=== PATIENT | female | born 1940 | race African-American/Black ===

== ENCOUNTER 2019-05-29 11:05 | Inpatient (IN) | payer OTHER ==
[~2019-05-29] VITALS: Ht 160 cm; Wt 85.7 kg
[2019-05-29 11:08] VITALS: BP 150/71
[2019-05-29] MEDS ORDERED: XALOS OP (11:21)
[2019-05-29] MEDS ORDERED: LACT-2 (11:21)
[2019-05-29] MEDS ORDERED: QUET25TA PO (11:21)
[2019-05-29] MEDS ORDERED: CRAN450C PO (11:21)
[2019-05-29] MEDS ORDERED: LISI10TA11 PO (11:21)
[2019-05-29] MEDS ORDERED: DOCU250S72 PO (11:21)
[2019-05-29] MEDS ORDERED: HYDR10TA1 PO (11:21)
[2019-05-29] MEDS ORDERED: SIMV20TA1 PO (11:21)
[2019-05-29] MEDS ORDERED: ASCO500T45 PO (11:21)
[2019-05-29] MEDS ORDERED: OMEP20TC10 PO (11:21)
[2019-05-29] MEDS ORDERED: VITD1000 PO (11:21)
[2019-05-29] MEDS ORDERED: SYN.05 PO (11:21)
[2019-05-29] MEDS ORDERED: MAGN400S60 PO (11:21)
[2019-05-29] MEDS ORDERED: TIM.5OS OP (11:21)
[2019-05-29] MEDS ORDERED: MELA5TAB6 PO (11:21)
--- NOTE | 2019-05-29 12:01 | NUR ---
PT ARRIVED BY AMBULANCE FROM [place] C/O STAFF FOUND HER ON THE FLOOR, AGIGATED, WITH INCREASE HALLUCINATION. UPON ARRIVAL PT IS COOPERATIVE. PT IS RESPONSIVE TO EXTERNAL STIMULI. MVOING ALL EXTREM. FULL CLEAR SPEECH, NO USE OF ACCESSORY MUSCLE NOTED. NO SI/HI PMH: DEMENTIA, ALZ, HALLUCINATION, GLUACOMA (RIGHT EYE BLIND) NKA
[2019-05-29] MEDS ORDERED: LORazepam 2 MG/ML VIAL IM ONE (12:10)
[2019-05-29] MEDS ORDERED: OLANZapine 5 MG ODT PO ONE (12:10)
--- NOTE | 2019-05-29 12:24 | NUR ---
MEDICATED DOCUMENTED---IN THE PYXIS MISTAKENLY I DOCUMENTED WITH GAVINO RN WASTED 1.5MG WHEN ACTUALLY WE WILL GIVE 1MG TOTAL---PHARMACY WAS CALLED AND INFORMED . THEY SUGGESTED TO DOCUMENT
--- NOTE | 2019-05-29 12:32 | NUR ---
ATIVAN IM GIVEN WITH MULTIPLE STAFF HOLDING DOWN PT D/T PT WAS BEING VERY AGITATED, AND SHOUTING. PT DENIED ZYPREXA PO. NOTIFIED
[2019-05-29] MEDS ORDERED: ZIPRASIDONE MESYLATE 20 MG/ML VIAL IM ONE (12:45)
[2019-05-29] MEDS ORDERED: WATER STERILE 10 ML MC ONE (12:56)
--- NOTE | 2019-05-29 13:45 | NUR ---
LAB AT BEDSIDE.
[2019-05-29 13:54] LABS: BASOPHILS # (AUTO) 0.1 K/uL (0.00-0.22); BASOPHILS % (AUTO) 1.3 % (0.0-2.0); EOSINOPHILS # (AUTO) 0.1 K/uL (0-0.4); EOSINOPHILS % (AUTO) 0.9 % (0.0-4.0); HEMATOCRIT 34.4 % (36-48); LYMPHOCYTES # (AUTO) 1.3 K/uL (2.5-16.5); MEAN CORPUSCULAR HEMOGLOBIN 29 pg (27-31); MEAN CORPUSCULAR HGB CONC 32 g/dL (33-37); MEAN CORPUSCULAR VOLUME 89.4 fL (80-94); MONOCYTES # (AUTO) 0.2 K/uL (0.8-1.0); MONOCYTES % (AUTO) 3.9 % (1.7-9.3); NEUTROPHILS # (AUTO) 4.3 K/uL (1.8-7.7); NEUTROPHILS % (AUTO) 71.9 % (42.2-75.2); PLATELET COUNT (AUTO) 231 K/uL (140-450); RED BLOOD CELL COUNT(AUTO) 3.85 MIL/uL (4.20-5.40); RED CELL DISTRIBUTION WIDTH 15.2 % (11.6-13.7)
--- NOTE | 2019-05-29 13:56 | NUR ---
NOTIFIED AND IS AWARE OF CXR RESULTS.
[2019-05-29 14:26] LABS: ANION GAP 12.4 (8-16); CARBON DIOXIDE 27.4 mmol/L (21-32); CHLORIDE 106 mmol/L (98-107); CREATININE 1.3 mg/dL (0.6-1.3); GLUCOSE 175 mg/dL (74-106); POTASSIUM 3.8 mmol/L (3.5-5.1); SODIUM SERUM 142 mmol/L (136-145); UREA NITROGEN, BLOOD 19 mg/dL (7-18)
[2019-05-29 14:32] LABS: ALBUMIN 3.4 g/dL (3.4-5.0); ASPARTATE AMINOTRANSFERASE 17 U/L (15-37); TOTAL BILIRUBIN 0.2 mg/dL (0.0-1.0)
[2019-05-29 14:36] LABS: SALICYLATE < 2.8 mg/dL (2.8-20.0)
[2019-05-29 14:38] LABS: ACETAMINOPHEN < 0.5 ug/ml (10-30)
[2019-05-29] MEDS ORDERED: NACL 0.9% 1,500 ML IV ONE (15:20)
[2019-05-29 15:23] LABS: BILIRUBIN,URINE NEGATIVE (NEGATIVE); BLOOD, URINE TRACE-L (NEGATIVE); COLOR,URINE YELLOW (YELLOW); LEUKOCYTE ESTERASE ,URINE 3+ (NEGATIVE); NITRITE, URINE NEGATIVE (NEGATIVE); UGLUCOSE NEGATIVE (NEGATIVE)
[2019-05-29 15:40] LABS: RBC,URINE 0-5 /HPF (0-5)
[2019-05-29 16:39] LABS: BARBITURATE, URINE NEG. ng/ml (NEG <=200); BENZODIAZEPINE, URINE NEG. ng/mL (NEG <=200); CANNABINOID, URINE NEG. ng/mL (NEG <=50); COCAINE, URINE NEG. ng/mL (NEG <=300); OPIATE, URINE NEG. ng/mL (NEG <=2000); PHENCYCLIDINE SCREEN,URINE NEG. ng/mL (NEG <=25)
[2019-05-29 17:41] LABS: ANION GAP 14.2 (8-16); CHLORIDE 108 mmol/L (98-107); CREATININE 1.2 mg/dL (0.6-1.3); GLUCOSE 122 mg/dL (74-106); POTASSIUM 4.2 mmol/L (3.5-5.1); SODIUM SERUM 145 mmol/L (136-145); UREA NITROGEN, BLOOD 18 mg/dL (7-18)
--- NOTE | 2019-05-29 18:17 | NUR ---
PT TO [facility] VIA [facility]
--- NOTE | 2019-05-29 18:47 | NUR ---
[facility]---PT REACTIVE TO ANY MILD STIMULI. NO C/O PAIN AT THIS TIME.--WILL CONTINUE TO OBSERVE FOR ANY CHANGES
--- NOTE | 2019-05-29 19:16 | NUR ---
REPORT GIVEN TO BRENDEN BRENNAN
[2019-05-29] MEDS ORDERED: HYDROcodone/APAP 7.5/325 MG 1 TAB PO PRN (20:00)
[2019-05-29] MEDS ORDERED: ACETAMINOPHEN 325 MG TAB PO PRN (20:00)
[2019-05-29] MEDS ORDERED: DOCUSATE SODIUM 100 MG GELCAP PO PRN (20:00)
[2019-05-29] MEDS ORDERED: ONDANSETRON 4 MG/2 ML VIAL IM/IVP PRN (20:00)
--- NOTE | 2019-05-29 20:30 | NUR ---
Patient will be admitted to care of . Admited to MED-SURG . Will go to room 110A. Belongings list completed. Report to BRENDEN REED .
--- NOTE | 2019-05-29 20:30 | NUR ---
PATIENT [facility]
--- NOTE | 2019-05-29 20:40 | NUR ---
RECEIVED REPORT FROM ER NURSE AT PATIENTS BEDSIDE, PATIENT SAFELY TRANSFERRED INTO BED. PATIENT NOT COOPERATIVE, VERY CONFUSED, NOT ALLOWING ANYONE TO TOUCH HER OR HELP HER MOVE. WILL FOLLOWUP CARE
[2019-05-29 20:41] LABS: FREE T4 (FREE THYROXINE) 0.35 ng/dL (0.76-1.46); MAGNESIUM 2.1 mg/dL (1.8-2.4); PHOSPHORUS 3.5 mg/dL (2.5-4.9); THYROID STIMULATING HORMONE 1.04 uIU/mL (0.34-3.74)
[2019-05-29 20:43] LABS: PROTHROMBIN TIME 9.8 secs (10.8-13.4)
--- NOTE | 2019-05-29 20:50 | NUR ---
PATIENT REFUSING ANY HELP FROM NURSES, DR AT BEDSIDE. PATIENT WILL PUSH AWAY OR SWAT AT NURSE TO CONNECT PULSE OX, NASAL CANNULA, OR TO REPLACE GOWN AND LINENS. ABLE TO GET BLOOD PRESSURE-153/107, HEART RATE 80, RR 18.
--- NOTE | 2019-05-29 21:00 | NUR ---
MADE AWARE OF PATIENTS CRITICAL LABS, LACTIC ACID 2.1. PENDING ORDERS
--- NOTE | 2019-05-29 21:10 | NUR ---
PATIENT SITTING UP IN BED, DOES NOT OPEN EYES TO VOICE, RIGHT EYE BLINDNESS/GLAUCOMA. ANOx1, PATIENT ALERT TO NAME, REQUESTS TO BE CALLED [facility]IL[facility]. PATIENT IS UNCOOPERATIVE, REFUSING CARE, DOES NOT WANT TO BE TOUCHED. CONFUSED. SLIGHTLY AGGRESSIVE. CANNOT TAKE VITALS AT THIS TIME DUE TO PATIENT SWATTING AT NURSES WHEN ATTEMPTING TO CONNECT EQUIPMENT. RIGHT AC PERIPHERAL IV 20G, SALINE LOCKED. BRIEF IN PLACE, PATIENT INCONTINENT. AT THIS TIME, PATIENT UNABLE TO ANSWER QUESTIONS ABOUT MEDICAL HISTORY DUE TO CONDITION. WILL FOLLOWUP CARE
[2019-05-29] MEDS ORDERED: cefTRIAXone 1,000 MG VIAL ONE (22:20)
--- NOTE | 2019-05-29 23:50 | NUR ---
PATIENT FINALLY ALLOWED NURSES TO REPLACE GOWN AND CHANGE LINENS. BED ALARMS IN PLACE, 1:[address]. PATIENT IS ANOx1, RESPONDS TO NAME, VERBAL BUT CONFUSED, TALKING OUT LOUD, DOES NOT FOLLOW COMMANDS.
[2019-05-30] VITALS: BP 150/87
--- NOTE | 2019-05-30 | NUR ---
PER ORDERS, PATIENT IS NPO BY MOUTH, AND STARTED ON D51/2NS IV FLUIDS. SITE ASYMPTOMATIC, FLUSHED AND PATENT. PATIENT IS AGITATED BUT RN ABLE TO MAINTAIN IV FLUIDS.
--- NOTE | 2019-05-30 00:40 | NUR ---
NASAL CANNULA IN PLACE AT 2L, SATURATIONS 96%. IV FLUIDS INFUSING, FIRST DOSE ROCEPHIN COMPLETE, NO SIGNS OF REACTION. WILL CONTINUE CLOSE MONITORING
[2019-05-30] MEDS: DEXT 5% / NACL 0.45% 1,000 ML IV SCH ×3 (00:57→23:35)
--- NOTE | 2019-05-30 02:34 | NUR ---
PATIENT QUIET, RESTING WELL IN BED, EYES CLOSED. BREATHING IS UNLABORED, CHEST RISE AND FALL. ON 2L NASAL CANNULA. FLACC 0, WILL CONTINUE TO MONITOR
[2019-05-30] MEDS ORDERED: ACETAMINOPHEN 325 MG TAB GT PRN (03:30)
[2019-05-30] MEDS ORDERED: HYDROcodone/APAP 7.5/325 MG 1 TAB GT PRN (03:30)
--- NOTE | 2019-05-30 04:28 | NUR ---
1:1 SITTER AT BEDSIDE, PATIENT AWAKE, TALKING TO HERSELF/HALLUCINATING. SITTER HAS TO FREQUENTLY ORIENT PATIENT AND REAPPLY NASAL CANNULA. BED IN LOW POSITION, SIDE RAILS UP, PATIENT DOES DENY PAIN. WILL CONTINUE TO MONITOR
[2019-05-30] MEDS: BLOOD GLUCOSE MONITORING 1 DEV DEV FS SCH ×5 (06:00→21:27)
[2019-05-30] MEDS ORDERED: LEVOTHYROXINE 0.05 MG TAB PO SCH (06:30)
[2019-05-30] MEDS: LEVOTHYROXINE 0.05 MG TAB GT SCH (06:30)
--- NOTE | 2019-05-30 06:43 | NUR ---
SEVERAL ATTEMPTS TO CALL ENVELOPE SEALER OPERATOR ON FACE SHEET- GARLAND ALATORRE [phone], SAYS LINE IS DISCONNECTED. WILL F/U WITH SNF
--- NOTE | 2019-05-30 07:00 | NUR ---
PATIENT REFUSED MEDICATION AND ACCUCHECK, BLOOD WAS DRAWN VIA LANCET BUT PATIENT IMMEDIATELY SWATTING AT NURSE AND YELLING TO LEAVE HER ALONE. PATIENT AGITATED AT THIS TIME, UNABLE TO ACCESS GTUBE SITE. PATIENT IS 1:1 SITTER.
--- NOTE | 2019-05-30 07:15 | NUR ---
RECEIVED REPORT FROM DIGITAL RESEARCH ANALYST NURSE FOR CONTINUITY OF CARE. PT IN STABLE CONDITION. IV INTACT AND PATENT. RESPIRATIONS EVEN AND UNLABORED. SAFETY MEASURES IN PLACE. BED IN LOW POSITION. BED ALARM ON. 1:[address] WILL CONTINUE TO MONITOR.
[2019-05-30 07:57] LABS: ANION GAP 14.8 (8-16); BASOPHILS % (AUTO) 0.8 % (0.0-2.0); CARBON DIOXIDE 27.6 mmol/L (21-32); CHLORIDE 107 mmol/L (98-107); CREATININE 1.1 mg/dL (0.6-1.3); EOSINOPHILS # (AUTO) 0.2 K/uL (0-0.4); EOSINOPHILS % (AUTO) 2.8 % (0.0-4.0); GLUCOSE 95 mg/dL (74-106); HEMOGLOBIN 11.5 g/dL (12.0-16.0); LYMPHOCYTES # (AUTO) 2.2 K/uL (2.5-16.5); MEAN CORPUSCULAR HEMOGLOBIN 29 pg (27-31); MEAN CORPUSCULAR HGB CONC 32 g/dL (33-37); MONOCYTES # (AUTO) 0.3 K/uL (0.8-1.0); MONOCYTES % (AUTO) 5.5 % (1.7-9.3); NEUTROPHILS # (AUTO) 3.3 K/uL (1.8-7.7); NEUTROPHILS % (AUTO) 53.9 % (42.2-75.2); PLATELET COUNT (AUTO) 262 K/uL (140-450); POTASSIUM 3.4 mmol/L (3.5-5.1); RED CELL DISTRIBUTION WIDTH 15.1 % (11.6-13.7); SODIUM SERUM 146 mmol/L (136-145); UREA NITROGEN, BLOOD 13 mg/dL (7-18); WHITE BLOOD COUNT (AUTO) 6.1 K/uL (4.8-10.8)
[2019-05-30 08:00] VITALS: BP 147/84
--- NOTE | 2019-05-30 08:22 | NUR ---
PATIENT HAS BEEN SCREENED AND CATEGORIZED MODERATE NUTRITION RISK. PATIENT WILL BE SEEN WITHIN 3-5 DAYS OF ADMISSION. 06/01/19 06/03/[address]
[2019-05-30 08:53] LABS: PHOSPHORUS 2.9 mg/dL (2.5-4.9)
[2019-05-30] MEDS ORDERED: QUEtiapine FUMARATE 25 MG TAB GT SCH ×2 (09:00→14:41)
[2019-05-30] MEDS: ASCORBIC ACID 500 MG TAB GT SCH (09:00)
[2019-05-30] MEDS ORDERED: LISINOPRIL 10 MG TAB PO SCH (09:00)
[2019-05-30] MEDS: LISINOPRIL 10 MG TAB GT SCH (09:00)
[2019-05-30] MEDS ORDERED: QUEtiapine FUMARATE 25 MG TAB PO SCH (09:00)
[2019-05-30] MEDS ORDERED: ASCORBIC ACID 500 MG TAB PO SCH (09:00)
[2019-05-30] MEDS: predniSONE 5 MG TAB GT SCH ×2 (09:00→21:24)
[2019-05-30] MEDS: LACTOBACILLUS RHAMNOSUS GG 1 EACH CAP GT SCH (09:00)
[2019-05-30] MEDS ORDERED: LACTOBACILLUS RHAMNOSUS GG 1 EACH CAP PO SCH (09:00)
[2019-05-30] MEDS ORDERED: predniSONE 5 MG TAB PO SCH ×2 (09:00→21:00)
--- NOTE | 2019-05-30 09:30 | NUR ---
PT REFUSED ORDERED DUE MEDICATION AT G-TUBE SITE AND ORAL. IV ORDERED MEDICATION GIVEN AT THIS TIME. WILL CONTINUE TO MONITOR.
[2019-05-30] MEDS: PANTOPRAZOLE 40 MG INJ VIAL IVP SCH (09:38)
--- NOTE | 2019-05-30 10:21 | NUR ---
PLACED TELE BOX ON PT AT THIS TIME. PT TOLERATED WELL. WILL CONTINUE TO MONITOR.
--- NOTE | 2019-05-30 11:30 | NUR ---
GAVE REPORT TO DAY SHIFT NURSE JIMMY FOR CONTINUITY OF CARE. PT IN STABLE CONDITION. PT IN STABLE CONDITION. IV INTACT AND PATENT. RESPIRATIONS EVEN AND UNLABORED. SAFETY MEASURES IN PLACE. BED IN LOW POSITION. BED ALARM ON. 1:[address] WILL CONTINUE TO MONITOR.
--- NOTE | 2019-05-30 11:30 | NUR ---
GAVE REPORT TO DAY SHIFT NURSE JIMMY FOR CONTINUITY OF CARE.
--- NOTE | 2019-05-30 11:48 | NUR ---
RESUMED CARE FROM DENICE RN,PATIENT IS AWAKE AND TALKING TO SELF ON BED. TELE MONITOR ATTACHED. FALL RISK PROTOCOL IN PLACE AND BED ALARM ACTIVATED. 1:1 SITTER BY BEDSIDE.
--- NOTE | 2019-05-30 11:55 | NUR ---
ATTEMPTED TO CHECK BLOOD GLUCOSE WITH ASSIST FROM SITTER AND AGENT, PATIENT REFUSED AND FOUGHT TO PUSH US AWAY. UNABLE TO CHECK BLOOD GLUCOSE FOR NOON. CHARGE NURSE AWARE.
[2019-05-30 12:00] VITALS: BP 138/88
--- NOTE | 2019-05-30 12:37 | NUR ---
PATIENT IS KEEP ON PULLING IV AND REMOVING TELE MONITOR. CHECKED IV SITE, IV INTACT AND PATENT. RE-APPLIED TELE MONITOR ON PATIENT AND REORIENTED PATIENT NOT TO REMOVE TELE MONITOR AND PATIENT SAID "GET IT OUT FROM ME, ALL SNAKES SPIDERS. DON'T TOUCH ME." TELE MONITOR ATTACHED. SAFETY MEASURES IN PLACE. FALL RISK PROTOCOL AND BED ALARM ACTIVATED. BED IN LOW POSITION AND CALL LIGHT WITHIN REACH. 1:1 SITTER BY BEDSIDE.
--- NOTE | 2019-05-30 13:34 | NUR ---
ADMINISTERED IVF PER MD ORDER, PATIENT IS AWAKE AND TALKING TO HERSELF ON BED. AND PATIENT STATED " DON'T YOU DARE TO TOUCH ME. GET OUT OF MY BED." SAFETY MEASURES IN PLACE. BED IN LOW POSITION AND BED ALARM ACTIVATED. 1:1 SITTER BY BEDSIDE. TELE MONITOR ATTACHED.
--- NOTE | 2019-05-30 14:05 | NUR ---
PATIENT ATTEMPTED TO GET OUT OF BED. WITH HELP FROM SITTER, POSITIONED PATIENT BACK ON BACK COMFORTABLY. REORIENTED PATIENT AND INSTRUCTED PATIENT NOT TO GET OUT OF BED BY HERSELF, PATIENT SHOUTING " DON'T TOUCH ME! I THERE ARE A LOT OF SPIDERS AND DOGS HERE." REORIENTED PATIENT THERE IS NO SPIDER AND DOG IN THE ROOM. TELE MONITOR ATTACHED. SAFETY MEASURES IN PLACE. FALL RISK PROTOCOL AND BED ALARM ACTIVATED. BED IN LOW POSITION AND CALL LIGHT WITHIN REACH. 1:1 SITTER BY BEDSIDE.
--- NOTE | 2019-05-30 14:41 | NUR ---
PATIENT PULLED OUT HER OWN IV, CHECKED CANNULA INTACT AND COMPLETED, NO BLEEDING AT IV SITE. RESTARTED IV ON R WRIST 22G, PATIENT TOLERATED WELL. ABLE TO CHECKED BLOOD GLUCOSE AND RECEIVED 90. CONTINUED INFUSING IVF PER MD ORDER, PATIENT AWAKE AND TALKING ON BED. TELE MONITOR ATTACHED. SAFETY MEASURES IN PLACE. BED IN LOW POSITION AND 1:1 SITTER BY BEDSIDE. BED ALARM ACTIVATED.
--- NOTE | 2019-05-30 14:53 | NUR ---
ADMINISTERED MED VIA GT WITH ASSIST FROM 2 OTHER RNS, FLUSHED BEFORE AND AFTER MED ADMINISTERED, PATIENT AWAKE AND TALKING TO HERSELF ON BED. NO SIGNS OF DISTRESS NOTED. TELE MONITOR ATTACHED. SAFETY MEASURES IN PLACE. BED IN LOW POSITION AND CALL LIGHT WITHIN REACH. FALL RISK PROTOCOL IN PLACE AND BED ALARM ACTIVATED. 1:! SITTER BY BEDSIDE.
[2019-05-30] MEDS ORDERED: HALOPERIDOL IM 5 MG/ML VIAL IM SCH (15:10)
--- NOTE | 2019-05-30 15:56 | NUR ---
PATIENT ATTEMPTED TO GET OUT OF BED MULTIPLE TIMES AND PULLED OUT IV, REORIENTED PATIENT AND INSTRUCTED PATIENT NOT TO GET OUT OF BED FOR HER OWN SAFETY, PATIENT SAID " GET OUT OF MY ROOM." ADMINISTERED HALOPERIDOL VIA IM ON R DELTOID PER MD FOR AGITATION, PATIENT TOLERATED WELL. PATIENT IS TALKING TO HERSELF IN THE ROOM. TELE MONITOR ATTACHED. SAFETY MEASURES IN PLACE. FALL RISK PROTOCOL AND BED ALARM ACTIVATED. BED IN LOW POSITION AND CALL LIGHT WITHIN REACH. 1:1 SITTER BY BEDSIDE.
[2019-05-30 16:00] VITALS: BP 145/72
[2019-05-30] MEDS ORDERED: MEDICATION REC. PHARMACY CONS. 1 EA MISC MC PRN (16:40)
[2019-05-30] MEDS ORDERED: HALOPERIDOL IM 5 MG/ML VIAL IM PRN (16:40)
[2019-05-30] MEDS ORDERED: KCL 20 MEQ/WATER INJ PREMIX 100 ML IV ONE (17:05)
--- NOTE | 2019-05-30 17:11 | NUR ---
PATIENT IS RESTING ON BED COMFORTABLY AND AROUSABLE TO VOICE. RESPIRATION EVEN AND UNLABORED ON RA. NO SIGNS OF DISTRESS NOTED. TELE MONITOR ATTACHED. SAFETY MEASURES IN PLACE. FALL RISK PROTOCOL AND BED ALARM ACTIVATED. BED IN LOW POSITION AND CALL LIGHT WITHIN REACH. 1:1 SITTER BY BEDSIDE.
--- NOTE | 2019-05-30 17:27 | NUR ---
ADMINISTERED POTASSIUM FOR 3.4 POTASSIUM FROM AM LAB, PATIENT IS RESTING ON BED AT THIS TIME AND AROUSABLE TO VOICE. TELE MONITOR ATTACHED. SAFETY MEASURES IN PLACE. FALL RISK PROTOCOL AND BED ALARM ACTIVATED. BED IN LOW POSITION AND CALL LIGHT WITHIN REACH. 1:1 SITTER BY BEDSIDE.
--- NOTE | 2019-05-30 18:16 | NUR ---
PATIENT IS AWAKE AND RESTING ON BED AT THIS TIME. PATIENT IS TALKING TO HERSELF AND HUGGING THE JARED BEAR. NO SIGNS OF DISTRESS NOTED. TELE MONITOR ATTACHED. SAFETY MEASURES IN PLACE. FALL RISK PROTOCOL AND BED ALARM ACTIVATED. BED IN LOW POSITION AND CALL LIGHT WITHIN REACH. 1:1 SITTER BY BEDSIDE.
--- NOTE | 2019-05-30 19:21 | NUR ---
ENDORSED PATIENT AT BEDSIDE TO PAYMENT POSTER NURSE FOR CONTINUITY OF CARE. PATIENT IS RESTING ON BED AT THIS TIME, AROUSABLE TO VOICE. NO SIGNS OF DISTRESS NOTED. PATIENT IS IN STABLE CONDITION. SAFETY MEASURES IN PLACE. TELE MONITOR ATTACHED. FALL RISK PROTOCOL IN PLACE AND BED ALARM ACTIVATED. BED IN LOW POSITION AND CALL LIGHT WITHIN REACH. 1:1 SITTER BY BEDSIDE.
--- NOTE | 2019-05-30 19:22 | NUR ---
RECD. RESTING COMFORTABLY SLEEPING IN BED. RESPIRATION EVEN AND UNLABORED. K-RIDER INFUSING, LEFT WRIST G22. G-TUBE IN PLACED, DRY AND INTACT. SAFETY MEASURES ENFORCED. BED IN THE LOWEST POSITION. BED ON ALARM. PATIENT IS INCONTINENT. NO APPEARANCE OF PAIN OR DISCOMFORT NOTED 0/10. WILL CONTINUE TO MONITOR AND ENSURE SAFETY DURING THIS SHIFT.
--- NOTE | 2019-05-30 19:45 | NUR ---
Patient's Plan of Care was discussed and reviewed with TIP CUTTER: ANAMARIA CASTILLO
[2019-05-30 20:00] VITALS: BP 146/83
[2019-05-30] MEDS ORDERED: SIMVASTATIN 20 MG TAB PO SCH (21:00)
[2019-05-30] MEDS: TIMOLOL OP 0.5% 5 ML BTL BOTH EYES SCH (21:16)
[2019-05-30] MEDS: LATANOPROST 0.005% OP 2.5 ML BTL BOTH EYES SCH (21:17)
[2019-05-30] MEDS: QUEtiapine FUMARATE 25 MG TAB GT SCH (21:23)
--- NOTE | 2019-05-30 21:25 | NUR ---
DUE PO MEDICATIONS GIVEN VIA GT.
[2019-05-30] MEDS: SIMVASTATIN 20 MG TAB GT SCH (21:40)
[2019-05-31] VITALS: BP 144/74
--- NOTE | 2019-05-31 | NUR ---
SLEEPING COMFORTABLY IN BED.
--- NOTE | 2019-05-31 02:00 | NUR ---
NO APPARENT DISTRESS NOTED, STILL SLEEPING.
[2019-05-31 04:00] VITALS: BP 140/70
--- NOTE | 2019-05-31 04:00 | NUR ---
VS STABLE. 02 SAT - 99% ON ROOM AIR.
[2019-05-31] MEDS: DEXT 5% / NACL 0.45% 1,000 ML IV SCH ×2 (04:04→09:35)
[2019-05-31] MEDS: LEVOTHYROXINE 0.05 MG TAB GT SCH (06:02)
[2019-05-31] MEDS: INSULIN LISPRO SLIDING SCALE 100 UNITS/ML VIAL SUBQ PRN ×2 (06:06→20:55)
--- NOTE | 2019-05-31 06:30 | NUR ---
CONDITION REMAIN STABLE. SAFETY MAINTAINED DURING SHIFT. ABLE TO SLEEP WELL. AFEBRILE DURING SHIFT.
[2019-05-31] MEDS ORDERED: LEVOTHYROXINE 0.025 MG TAB GT SCH (07:06)
--- NOTE | 2019-05-31 07:15 | NUR ---
ENDORSOED TO BRENDEN WEBSTER FOR CONTINUITY OF CARE.
--- NOTE | 2019-05-31 07:30 | NUR ---
RECEIVED PATIENT FROM HSE SPECIALIST NURSE. PATIENT IS FULL CODE, NKA. A&O X1, CURRENTLY SLEEPING IN BED, VISIBLE CHEST RISE AND FALL. IV TO LEFT WRIST 22G WITH D5 1/2 NS INFUSING AT 100ML/HR. PATIENT IS ON ROOM AIR. WILL CONTINUE WITH PLAN OF CARE FOR THE DAY.
[2019-05-31 07:59] LABS: BASOPHILS % (AUTO) 0.6 % (0.0-2.0); EOSINOPHILS # (AUTO) 0.2 K/uL (0-0.4); EOSINOPHILS % (AUTO) 3.2 % (0.0-4.0); HEMATOCRIT 37.3 % (36-48); HEMOGLOBIN 11.9 g/dL (12.0-16.0); LYMPHOCYTES # (AUTO) 1.4 K/uL (2.5-16.5); LYMPHOCYTES % (AUTO) 30.1 % (20.5-51.1); MEAN CORPUSCULAR HEMOGLOBIN 29 pg (27-31); MEAN CORPUSCULAR HGB CONC 32 g/dL (33-37); MEAN CORPUSCULAR VOLUME 89.5 fL (80-94); MONOCYTES # (AUTO) 0.3 K/uL (0.8-1.0); MONOCYTES % (AUTO) 5.3 % (1.7-9.3); NEUTROPHILS # (AUTO) 2.9 K/uL (1.8-7.7); NEUTROPHILS % (AUTO) 60.8 % (42.2-75.2); PLATELET COUNT (AUTO) 237 K/uL (140-450); RED BLOOD CELL COUNT(AUTO) 4.17 MIL/uL (4.20-5.40); RED CELL DISTRIBUTION WIDTH 14.9 % (11.6-13.7); WHITE BLOOD COUNT (AUTO) 4.7 K/uL (4.8-10.8)
[2019-05-31 08:00] VITALS: BP 141/83
[2019-05-31 08:04] LABS: MAGNESIUM 1.8 mg/dL (1.8-2.4); PHOSPHORUS 4.1 mg/dL (2.5-4.9)
[2019-05-31 08:12] LABS: ANION GAP 11.2 (8-16); CARBON DIOXIDE 26.3 mmol/L (21-32); CHLORIDE 106 mmol/L (98-107); CREATININE 1.1 mg/dL (0.6-1.3); GLUCOSE 149 mg/dL (74-106); POTASSIUM 3.5 mmol/L (3.5-5.1); SODIUM SERUM 140 mmol/L (136-145); UREA NITROGEN, BLOOD 8 mg/dL (7-18)
[2019-05-31] MEDS: PANTOPRAZOLE 40 MG INJ VIAL IVP SCH (09:00)
--- NOTE | 2019-05-31 09:21 | NUR ---
Hog Counter Note: I called and spoke with patient's daughter Liset Ibarra , she stated she would like patient to return to [facility] upon discharge. Addendum: 05/31/19 at 0923 by Marielos Winn SS Per Liset Ibarra, patient does not have an existing Advance Directive for health care and she stated she is patient's health care decision maker.
[2019-05-31] MEDS: QUEtiapine FUMARATE 25 MG TAB GT SCH ×2 (10:02→21:16)
[2019-05-31] MEDS: LISINOPRIL 10 MG TAB GT SCH (10:03)
[2019-05-31] MEDS: ASCORBIC ACID 500 MG TAB GT SCH (10:03)
[2019-05-31] MEDS: LACTOBACILLUS RHAMNOSUS GG 1 EACH CAP GT SCH (10:04)
[2019-05-31] MEDS: predniSONE 5 MG TAB GT SCH ×2 (10:07→21:15)
--- NOTE | 2019-05-31 10:45 | NUR ---
*S.T. Bedside swallow eval completed* See report. Pt presents w/ adequate oropharyngeal swallow function for textures given. No overt s/s aspiration were observed. Pt unable to self-feed due to lethargy and blindness. Pt also unable to suck liquids via straw. Pt tolerated controlled cup sips of thin liquids. Recommend: 1) Advance to mechanical soft diet w/ thin liquids for oral gratification only. Primary means of nutrition/hydration and meds via G-tube. 2) 1:1 feeder w/ aspiration precautions. 3) Defer to medicine team for dietary restrictions. 4) No straws. Pt unable to manage; chews on straw. Controlled cup sips. Pt appears to be functioning at her reported baseline. No further tx is indicated at this time. DC to [facility]. Endorsed to BRENDEN Shah. Time [id number]
[2019-05-31] MEDS: BLOOD GLUCOSE MONITORING 1 DEV DEV FS SCH ×3 (11:58→20:53)
[2019-05-31 12:00] VITALS: BP 149/84
--- NOTE | 2019-05-31 12:00 | NUR ---
PATIENT IS IN SINUS DOM AT TIMES WITH HR OF 47. PATIENT IS ASYMPTOMATIC. BEDSIDE PULSE OX IS READING 76PR. WILL CONTINUE TO MONITOR
--- NOTE | 2019-05-31 15:28 | NUR ---
LATE ENTRY FOR TODAY: REFERRAL FOR [facility] SNF, FAXED TO [facility] AND HEATHER PEÑA. CONTACTED [facility] AT [phone], ABLE TO SPEAK TO [facility] REGARDING REFERRAL. HE CONFIRMED THAT THEY RECEIVED THE REFERRAL AND WILL FORWARD IT TO THEIR CHANNEL [facility] FOR REVIEW.
--- NOTE | 2019-05-31 15:31 | NUR ---
RECEIVED A CALL FROM HEATHER (INTAKE) FROM [facility], OBTAINING MORE INFORMATION . ALL INFORMATION NEEDED PROVIDED.
[2019-05-31 16:00] VITALS: BP 144/84
[2019-05-31] MEDS ORDERED: MEDICATION REC. PHARMACY CONS. 1 EA MISC MC PRN (16:55)
[2019-05-31] MEDS: NACL 0.9% 1,000 ML IV SCH ×2 (17:10→21:17)
--- NOTE | 2019-05-31 19:15 | NUR ---
RECEIVED PT FROM POONAM RN PT RESTING ON BED AAO;X2 IV ON LEFT ARM INFUSING WELL ON TELEMETRY SR, G TUBE IN PLACE PATENT. REPOSITIONED INITIAL ASSESSMENT DONE
[2019-05-31 20:00] VITALS: BP 138/67
[2019-05-31] MEDS: TIMOLOL OP 0.5% 5 ML BTL BOTH EYES SCH (20:58)
[2019-05-31] MEDS: LATANOPROST 0.005% OP 2.5 ML BTL BOTH EYES SCH (20:59)
[2019-05-31] MEDS: SIMVASTATIN 20 MG TAB GT SCH (21:15)
--- NOTE | 2019-05-31 21:30 | NUR ---
BLOOD SUGR TEST 162 COVERAGE WITH 2 UNITS SUB Q HUMALOG FOLLOW PROTOCOL
[2019-06-01] VITALS: BP 125/57
--- NOTE | 2019-06-01 | NUR ---
PT SLEEPING WELL NOT DISTRESS NOTED ON TELE SR, REPOSITIONED Q2H
--- NOTE | 2019-06-01 02:06 | NUR ---
LINEN CHANGED PT INCONTINENT ON TELMETRY SR DENIES ANY PAIN OR DISCOMFORT
[2019-06-01 04:00] VITALS: BP 126/63
--- NOTE | 2019-06-01 05:52 | NUR ---
SPONGE BATH GIVEN LINEN CHANGED NOT DISTRESS NO;KRISTEL ON TELMETRY SR
[2019-06-01] MEDS: BLOOD GLUCOSE MONITORING 1 DEV DEV FS SCH ×3 (06:44→16:30)
[2019-06-01 06:46] LABS: BASOPHILS # (AUTO) 0.1 K/uL (0.00-0.22); EOSINOPHILS # (AUTO) 0.1 K/uL (0-0.4); EOSINOPHILS % (AUTO) 1.9 % (0.0-4.0); HEMATOCRIT 33.4 % (36-48); HEMOGLOBIN 10.8 g/dL (12.0-16.0); LYMPHOCYTES # (AUTO) 1.4 K/uL (2.5-16.5); LYMPHOCYTES % (AUTO) 29.1 % (20.5-51.1); MEAN CORPUSCULAR HEMOGLOBIN 29 pg (27-31); MEAN CORPUSCULAR HGB CONC 32 g/dL (33-37); MEAN CORPUSCULAR VOLUME 88.8 fL (80-94); MONOCYTES # (AUTO) 0.3 K/uL (0.8-1.0); MONOCYTES % (AUTO) 5.8 % (1.7-9.3); NEUTROPHILS % (AUTO) 62.2 % (42.2-75.2); PLATELET COUNT (AUTO) 242 K/uL (140-450); RED BLOOD CELL COUNT(AUTO) 3.77 MIL/uL (4.20-5.40); RED CELL DISTRIBUTION WIDTH 15.5 % (11.6-13.7); WHITE BLOOD COUNT (AUTO) 4.8 K/uL (4.8-10.8)
--- NOTE | 2019-06-01 06:58 | NUR ---
PT WILL BE ENDORSED TODAY SHIFT NURSED FOR CONTINUE OF CARE [id number]
[2019-06-01 07:21] LABS: CHLORIDE 110 mmol/L (98-107); CREATININE 1.1 mg/dL (0.6-1.3); GLUCOSE 105 mg/dL (74-106); SODIUM SERUM 145 mmol/L (136-145); UREA NITROGEN, BLOOD 7 mg/dL (7-18)
--- NOTE | 2019-06-01 07:35 | NUR ---
RECEIVED PT FROM BANJO REPAIR PERSON NURSE, LUCA, PT IS AWAKE AND LYING ON THE BED WITH SIDE RAILS UP AND CALL LIGHT WITHIN REACH, IV LINE ON THE LEFT FA G. 22 WITH IVF NS INFUSING AT 60ML, NO SIGN OF DISTRESS NOTED AND WILL CONTINUE TO MONITOR PT.
[2019-06-01 07:36] LABS: MAGNESIUM 1.9 mg/dL (1.8-2.4); PHOSPHORUS 4.1 mg/dL (2.5-4.9)
--- NOTE | 2019-06-01 07:44 | NUR ---
DR. KELSEY AND THE RESIDENT DOCTORS CAME TO PT'S ROOM AND SPOKE TO PT REGARDING POC.
[2019-06-01 08:00] VITALS: BP 133/64
[2019-06-01] MEDS ORDERED: QUET25TA46 GT (08:36)
[2019-06-01] MEDS ORDERED: ROC2I IV (08:50)
[2019-06-01] MEDS ORDERED: LACT10CA GT (08:50)
--- NOTE | 2019-06-01 09:12 | NUR ---
CONTACTED HEATHER [facility] AT [phone] REGARDING REFERRAL, SHE STATED SHE IS STILL IN A MEETING AND WILL GIVE ME A CALL SOON SHE IS DONE. Addendum: 06/01/19 at 0986 by Madai Blood CM RECEIVED A CALL FROM HEATHER [facility], SHE REQUESTED TO FAX OVER [facility]. SENT TO FAX NUMBER [phone]. Addendum: 06/01/19 at 1250 by Madai Blood CM PER HEATHER [facility], NO FEMALE BEDS AVAILABLE AT THE MOMENT.
[2019-06-01] MEDS: QUEtiapine FUMARATE 25 MG TAB GT SCH (09:56)
[2019-06-01] MEDS: ASCORBIC ACID 500 MG TAB GT SCH (09:57)
[2019-06-01] MEDS: LISINOPRIL 10 MG TAB GT SCH (09:57)
[2019-06-01] MEDS: predniSONE 5 MG TAB GT SCH (09:57)
[2019-06-01] MEDS: LACTOBACILLUS RHAMNOSUS GG 1 EACH CAP GT SCH (09:57)
[2019-06-01] MEDS: PANTOPRAZOLE 40 MG INJ VIAL IVP SCH (09:57)
--- NOTE | 2019-06-01 10:00 | NUR ---
PT IS AGITATED AND MEDICATIONS WERE GIVEN VIA G-TUBE, NO RESIDUAL NOTED. WILL MONITOR PT.
--- NOTE | 2019-06-01 10:01 | NUR ---
PT IS VERY AGITATED NOW AND IM MEDICATION WAS GIVEN, TALKING TO PT NOW.
[2019-06-01] MEDS ORDERED: HALOPERIDOL IM 5 MG/ML VIAL IM SCH ×2 (10:20)
--- NOTE | 2019-06-01 10:35 | NUR ---
PT REMOVED HER WELLNESS AMBASSADOR NOW.
--- NOTE | 2019-06-01 11:30 | NUR ---
PT REFUSED TO HAVE A BLOOD GLUCOSE CHECK.
--- NOTE | 2019-06-01 12:03 | NUR ---
PT REFUSED TO HAVE VITAL SIGNS CHECKED NOW AND IS WITHDRAWN AND DOES NOT WANT TO HAVE A CHANGE OF CLOTHES AND CLEAN UP.
[2019-06-01 12:39] LABS: T4 (THYROXINE) 2.8 ug/dL (4.5-12.0)
--- NOTE | 2019-06-01 12:50 | NUR ---
PER DR. REYNA PATIENT IS OK TO GO BACK TO [facility]. REFERRAL FAX TO [facility]. Addendum: 06/01/19 at 1307 by Madai Blood CM PER LAWSON OF [facility], PATIENT WILL GO T ROOM 15C UNDER DR. LYN MORRISON. CONTACTED [facility] AT [phone], PROVIDED ME WITH TRANSPORT AUTH [id number]. CONTACTED AT [phone], ABLE TO SPEAK TO [employer]. CALENDER ROLL OPERATOR WILL BE AT 1700. PRIMARY RN MADE AWARE. Addendum: 06/01/19 at 1320 by Madai Blood CM [facility]SON OF [facility] MADE AWARE OF CALENDER ROLL OPERATOR. LEFT MESSAGE TO PATIENT'S DAUGHTER GARLAND REGALADO AT [phone] REGARDING PATIENT GOING BACK TO [facility] TODAY. Addendum: 06/01/19 at [address] Blood CM DR. REYNA MADE AWARE.
--- NOTE | 2019-06-01 13:19 | NUR ---
06/01/19 RD INITIAL ASSESSMENT COMPLETED PLEASE REFER TO NUTRITION ASSESSMENT UNDER CARE ACTIVITY FOR ESTIMATED NUTRITIONAL NEEDS. 1. RECOMMEND JEVITY 1.2 @ 65 ML/HR X 24 HR WITH FREE WATER FLUSH OF 100 ML Q4H -THIS WILL PROVIDE 1560 ML OF VOLUME, 1872 KCAL AND 86.5 GM PROTEIN WHICH WILL MEET 100% OF ESTIMATED NEEDS. 2. [facility] 60 GM DIET FOR ORAL GRATIFICATION 3. RD TO FOLLOW-UP 2-3 DAYS, HIGH RISK DARWIN LOAIZA RD
--- NOTE | 2019-06-01 13:58 | NUR ---
CALLED [place] [id number] [phone] AND GAVE REPORT TO BRENDEN BRUSH, PT WILL BE GOING TO [facility] 15-C UNDER THE SERVICE OF DR. LYN MORRISON AND PT HAS TO FOLLOW-UP OUT PT TO AN OPHTHALMOLOGY FOR HER LEFT EYE AND PT WILL BE CONTINUED WITH IV ROCEPHIN FOR 5 MORE DAYS AND BRENDEN BRUSH VERBALIZED UNDERSTANDING OF THE PT'S CARE MANAGEMENT WHEN TRANSFERRED BACK TO [facility].
--- NOTE | 2019-06-01 14:05 | NUR ---
CALLED THE PT'S DAUGHTER GARLAND MENDOZA AT [phone] AND INFORMED THAT PT WILL BETRANSFERRED BACK TO [facility] TODAY AND TIN DIPPER WILL BE AT 1700.
[2019-06-01] MEDS ORDERED: HALO5SOL6 IM (15:36)
--- NOTE | 2019-06-01 16:30 | NUR ---
PT REFUSED TO HAVE A BLOOD GLUCOSE AND VITAL SIGN CHECK DONE TO HER, DR. MARVIN WAS INFORMED.
--- NOTE | 2019-06-01 17:50 | NUR ---
DISCHARGED PT TO [facility] EXTENDED CARE VIA GURNEY AND ACCOMPANIED BY [facility], IV LINE IN THE LEFT FA IS IN PLACE FOR IV CONTINUATION, PT IS UNABLE TO COMPREHEND, DAUGHTER GARLAND WAS NOTIFIED OF TRANSFER, PT IS STABLE AT THIS TIME.
== END 2019-06-01 17:50 | DRG 689 ==
LOC: MED 11:05 → MTU 19:58
PROVIDERS: ADMIT General Practice; ATTEND General Practice
DX: N12 Tubulo-interstitial nephritis, not specified as acute or chronic (principal); G93.41 Metabolic encephalopathy; E43 Unspecified severe protein-calorie malnutrition; E87.2 Acidosis; E87.0 Hyperosmolality and hypernatremia; R65.10 Systemic inflammatory response syndrome (SIRS) of non-infectious origin without acute organ dysfunction; I10 Essential (primary) hypertension; F41.9 Anxiety disorder, unspecified; M19.90 Unspecified osteoarthritis, unspecified site; G30.9 Alzheimer's disease, unspecified; F02.80 Dementia in other diseases classified elsewhere, unspecified severity, without behavioral disturbance, psychotic disturbance, mood disturbance, and anxiety; K21.9 Gastro-esophageal reflux disease without esophagitis; E78.5 Hyperlipidemia, unspecified; E03.9 Hypothyroidism, unspecified; M06.9 Rheumatoid arthritis, unspecified; F29 Unspecified psychosis not due to a substance or known physiological condition; R13.10 Dysphagia, unspecified; E87.6 Hypokalemia; E11.65 Type 2 diabetes mellitus with hyperglycemia; H40.89 Other specified glaucoma; Z68.33 Body mass index [BMI] 33.0-33.9, adult; Z79.899 Other long term (current) drug therapy; Z93.1 Gastrostomy status
CPT/HCPCS: 36415; 70450; 71045; 71260; 80048; 80053; 80305; 81001; 82140; 82150; 82550; 82948; 83036; 83605; 83690; 83735; 83880; 84100; 84436; 84439; 84443; 84484; 85025; 85610; 85730; 87086; 87186; 92610; 93005; 96361; 96372; 97110; 97112; 97161-GP; 97530; 99285; C1758; C9113; G0480; J0696; J1630; J1815; J2060; J3480; J3486; J7030; J7060; J7512; Q0092; Q9967